=== PATIENT | male | born 1980 | race Hispanic/Latino ===

== ENCOUNTER 2018-07-25 18:11 | Emergency (ER) | payer MEDICAID, OTHER ==
[2018-07-25] MEDS ORDERED: IBUPROFEN 600 MG TABLET ONE (18:23)
[2018-07-25] MEDS ORDERED: ACETAMINOPHEN-CODEINE 300/30MG TAB ONE (18:24)
== END 2018-07-25 19:55 | disposition home or self-care (01) ==
LOC: EDH 18:11
DX: S62.327A Displaced fracture of shaft of fifth metacarpal bone, left hand, initial encounter for closed fracture (principal); Z72.0 Tobacco use; W22.01XA Walked into wall, initial encounter; Y93.89 Activity, other specified; Y92.89 Other specified places as the place of occurrence of the external cause; Y99.8 Other external cause status
CPT/HCPCS: 29125; 73130